=== PATIENT | male | born 1960 | race Caucasian/White ===

== ENCOUNTER 2018-01-10 06:13 | Inpatient (IN) | payer OTHER ==
[2018-01-10] MEDS: TRANEXAMIC ACID 1,000 MG in SOD CHLORIDE 0.9% 100 ML IV ×2 (07:00→09:30)
[2018-01-10] MEDS ORDERED: EPHEDrine SULFATE 50 MG/5 ML SYG (07:00)
[2018-01-10] MEDS ORDERED: LIDOCAINE 2% (SDV) 5 ML INJ (09:03)
[2018-01-10] MEDS ORDERED: PROPOFOL 20 ML (09:03)
[2018-01-10] MEDS ORDERED: MIDAZOLAM 1 MG/ML 2 ML INJ (09:04)
[2018-01-10] MEDS ORDERED: BUPIVACAINE 0.75%/DEXT (SPINAL) 2 ML INJ (09:08)
[2018-01-10] MEDS: CEFAZOLIN 2 GM/50 ML (PMX) 50 ML IVPB (09:28)
[2018-01-10] MEDS ORDERED: NACL 0.9% 3 ML SYG IV (09:30)
[2018-01-10] MEDS ORDERED: ZOLPIDEM 5 MG TAB PO (09:30)
[2018-01-10] MEDS ORDERED: BETHANECHOL 25 MG TAB PO (09:30)
[2018-01-10] MEDS ORDERED: NALOXONE (0.4 MG/ML) INJ IV (09:30)
[2018-01-10] MEDS ORDERED: SENNA/DOCUSATE NA (8.6MG/50MG) TAB PO (09:30)
[2018-01-10] MEDS ORDERED: DIPHENHYDRAMINE 50 MG INJ IV ×2 (09:30→12:00)
[2018-01-10] MEDS ORDERED: MAGNESIUM HYDROXIDE 30ML CUP PO (09:30)
[2018-01-10] MEDS ORDERED: oxyCODONE 5 MG TAB PO (09:30)
[2018-01-10] MEDS ORDERED: BISACODYL 10 MG SUPP PR (09:30)
[2018-01-10] MEDS ORDERED: NA PHOSPHATE/BIPHOS 133 ML ENEMA PR (09:30)
[2018-01-10] MEDS ORDERED: FAMOTIDINE 20 MG INJ (09:41)
[2018-01-10] MEDS ORDERED: ONDANSETRON 4 MG INJ (09:41)
[2018-01-10] MEDS ORDERED: DEXAMETHASONE 4 MG/ML 1 ML INJ (09:41)
[2018-01-10] MEDS ORDERED: FENTAnyl 50 MCG/ML VIAL (09:52)
[2018-01-10] MEDS: BACITRACIN 50000 UNITS INJ (10:07)
[2018-01-10] MEDS: POLYMYXIN B 500000 UNIT INJ (10:07)
[2018-01-10] MEDS ORDERED: MEPERIDINE 25 MG INJ IV (12:00)
[2018-01-10] MEDS ORDERED: FENTAnyl 50 MCG/ML VIAL IV ×3 (12:00)
[2018-01-10] MEDS ORDERED: HYDROmorphONE (0.2 MG/ML) 10ML SYG IV ×3 (12:00)
[2018-01-10] MEDS ORDERED: PROCHLORPERAZINE 10 MG INJ IV (12:00)
[2018-01-10] MEDS ORDERED: EPHEDrine SULFATE 50 MG/5 ML SYG IV (12:00)
[2018-01-10] MEDS ORDERED: ONDANSETRON 4 MG INJ IV (12:00)
[2018-01-10] MEDS ORDERED: LABETALOL HCL 20MG INJ IV (12:00)
[2018-01-10] MEDS ORDERED: hydrALAzine 20 MG INJ IV (12:00)
[2018-01-10] MEDS: CEFAZOLIN 1 GM/50 ML (PMX) 50 ML IVPB ×2 (12:19→17:39)
[2018-01-10] MEDS: ONDANSETRON 4 MG INJ IV ×3 (12:20→20:55)
[2018-01-10] MEDS: ASPIRIN (EC) 325 MG TAB PO (12:20)
[2018-01-10] MEDS: DOCUSATE SODIUM 100 MG CAP PO (12:21)
[2018-01-10] MEDS: LEVETIRACETAM 500 MG TAB PO ×2 (12:29→20:55)
[2018-01-10] MEDS: oxyCODONE 5 MG TAB PO ×4 (14:11→20:56)
[2018-01-10] MEDS: SOD CHLORIDE 0.9% 1,000 ML IV ×2 (14:13→21:58)
[2018-01-10] MEDS: KETOROLAC 15 MG INJ IV (14:49)
[2018-01-10] MEDS: PANTOPRAZOLE (EC) 40 MG TAB PO (20:55)
[2018-01-11] MEDS: oxyCODONE 5 MG TAB PO ×4 (00:10→09:36)
[2018-01-11] MEDS: CEFAZOLIN 1 GM/50 ML (PMX) 50 ML IVPB (01:09)
[2018-01-11] MEDS: SOD CHLORIDE 0.9% 1,000 ML IV (01:12)
[2018-01-11] MEDS: ONDANSETRON 4 MG INJ IV (04:09)
[2018-01-11 06:04] LABS: ADD MAN DIFF? NO
[2018-01-11 06:13] LABS: ABNORMAL IP MESSAGE 1; BASOPHILS % 0.2 % (0.0-2.0); EOSINOPHILS # 0.1 10^3/ul (0.0-0.5); EOSINOPHILS % 0.7 % (0.0-7.0); HEMATOCRIT 35.1 % (42.0-52.0); HEMOGLOBIN 11.6 g/dl (14.0-18.0); LYMPHOCYTES # 2.5 10^3/ul (0.8-2.9); LYMPHOCYTES % 15.2 % (15.0-51.0); MEAN CORPUSCULAR HEMOGLOBIN 30.9 pg (29.0-33.0); MEAN CORPUSCULAR VOLUME 93.4 fl (82.0-101.0); MEAN PLATELET VOLUME 11.1 fl (7.4-10.4); MONOCYTE # 2.7 10^3/ul (0.3-0.9); MONOCYTES % 16.7 % (0.0-11.0); NEUTROPHIL # 10.8 10^3/ul (1.6-7.5); NEUTROPHILS % 66.8 % (39.0-77.0); PLATELET COUNT 198 10^3/UL (140-415); POSITIVE DIFF @See below; RED BLOOD COUNT 3.76 10^6/ul (4.70-6.10); RED CELL DISTRIBUTION WIDTH 12.7 % (11.5-14.5)
[2018-01-11 06:13] LABS: WHITE BLOOD COUNT 16.1 10^3/ul (4.8-10.8)
[2018-01-11] MEDS: PANTOPRAZOLE (EC) 40 MG TAB PO ×2 (06:52→09:37)
[2018-01-11 06:54] LABS: ANION GAP 15 (8-16); BLOOD UREA NITROGEN 12 mg/dl (7-20); CALCIUM 8.6 mg/dl (8.4-10.2); CARBON DIOXIDE 27 mmol/L (21-31); CHLORIDE 106 mmol/L (97-110); CREATININE 0.87 mg/dl (0.61-1.24); GLUCOSE 95 mg/dl (70-220); POTASSIUM 4.2 mmol/L (3.5-5.1); SODIUM 144 mmol/L (135-144)
[2018-01-11 06:59] LABS: MAGNESIUM 1.6 mg/dl (1.7-2.5)
[2018-01-11 06:59] LABS: PHOSPHORUS 3.4 mg/dl (2.5-4.9)
[2018-01-11] MEDS: DOCUSATE SODIUM 100 MG CAP PO (09:37)
[2018-01-11] MEDS: FERROUS FUMARATE (SR) TAB PO (09:37)
[2018-01-11] MEDS: LEVETIRACETAM 500 MG TAB PO (09:37)
[2018-01-11] MEDS: CELECOXIB 100 MG CAP PO (09:37)
[2018-01-11] MEDS: ASPIRIN (EC) 325 MG TAB PO (09:37)
[2018-01-11] MEDS: LISINOPRIL 10 MG TAB PO (09:37)
[2018-01-11] MEDS: MAGNESIUM OXIDE 400 MG TAB PO (12:33)
== END 2018-01-11 12:35 | disposition home health service (06) | DRG 468 ==
LOC: REC 06:13 → MS1 12:59
PROC: 0SR904Z Replacement of Right Hip Joint with Ceramic on Polyethylene Synthetic Substitute, Open Approach (ICD-10-PCS; principal; 2018-01-10 08:30)
PROC: 0SP90JZ Removal of Synthetic Substitute from Right Hip Joint, Open Approach (ICD-10-PCS; 2018-01-10 08:30)
DX: T84.090A Other mechanical complication of internal right hip prosthesis, initial encounter (principal); Y79.8 Miscellaneous orthopedic devices associated with adverse incidents, not elsewhere classified; I10 Essential (primary) hypertension; G40.909 Epilepsy, unspecified, not intractable, without status epilepticus; K21.9 Gastro-esophageal reflux disease without esophagitis
CPT/HCPCS: 73530; 80048; 83735; 84100; 85025; 86850; 86900; 86901; 86920; 87070; 87075; 87081; 87086; 88304; 88311; 97110; 97116; 97163; 97165